=== PATIENT | male | born 1985 | race Caucasian/White ===

== ENCOUNTER 2023-03-10 08:23 | Outpatient (CLI) | payer MEDICAID, SELFPAY | END 2023-03-10 08:24 | disposition home or self-care (01) | PROVIDERS: PCP Family Medicine; Referring Provider Family Medicine; Visit Provider Family Medicine | DX: Z00.00 Encounter for general adult medical examination without abnormal findings (principal); E66.9 Obesity, unspecified; R53.83 Other fatigue; Z13.6 Encounter for screening for cardiovascular disorders | CPT/HCPCS: 80053; 80061; 84270; 84402; 84403; 84443 ==

== ENCOUNTER 2024-11-22 08:57 | Outpatient (CLI) | payer MEDICAID, SELFPAY | END 2024-11-22 08:58 | disposition home or self-care (01) | LOC: NFLDREF 11-25 23:32 | PROVIDERS: PCP Family Medicine; Referring Provider Family Medicine; Visit Provider Family Medicine | DX: R73.03 Prediabetes (principal); R53.83 Other fatigue; F41.9 Anxiety disorder, unspecified; R79.89 Other specified abnormal findings of blood chemistry; E66.9 Obesity, unspecified | CPT/HCPCS: 80076; 84270; 84402; 84403 ==

== ENCOUNTER 2025-04-25 08:55 | Outpatient (CLI) | payer MEDICAID, SELFPAY | END 2025-04-25 08:56 | disposition home or self-care (01) | LOC: NFLDREF 04-30 23:00 | PROVIDERS: PCP Family Medicine; Referring Provider Family Medicine; Visit Provider Family Medicine | DX: R53.83 Other fatigue (principal); R79.89 Other specified abnormal findings of blood chemistry; D64.9 Anemia, unspecified; E66.9 Obesity, unspecified; F43.10 Post-traumatic stress disorder, unspecified | CPT/HCPCS: 80076; 84270; 84402; 84403 ==